=== PATIENT | female | born 1995 | race African-American/Black ===

== ENCOUNTER 2020-12-13 19:08 | Emergency (ER) | payer OTHER ==
[~2020-12-13] VITALS: Ht 170.2 cm; Wt 59.1 kg
[2020-12-13 19:18] VITALS: BP 129/79
[2020-12-13] MEDS ORDERED: ESCI-8 PO (19:23)
[2020-12-13] MEDS ORDERED: AMPH30CA7 PO (19:29)
[2020-12-13] MEDS ORDERED: ESCI20TA87 PO (19:29)
[2020-12-13] MEDS ORDERED: BUSP5TAB3 PO (19:29)
== END 2020-12-13 19:20 | disposition left against medical advice (07) ==
LOC: EMS 19:08
DX: R42 Dizziness and giddiness (principal); Z53.21 Procedure and treatment not carried out due to patient leaving prior to being seen by health care provider